=== PATIENT | female | born 1980 ===

== ENCOUNTER 2021-01-13 13:59 | Outpatient (CLI) | payer OTHER, SELFPAY ==
--- NOTE | ~2021-01-13 | XR_ITS ---
EXAMINATION: XR barium swallow DATE: 01/13/2021 14:40 INDICATION: Dysphagia and odynophagia TECHNIQUE: The patient drank thick barium, gas-producing crystals, and thin barium. Fluoroscopy of th e hypopharynx and esophagus was performed. Fluoroscopy exposure time was 1.1 minutes. The DAP for thi s procedure was 6.165 Gycm2. COMPARISON: None. FINDINGS: There is no mass or stricture of the esophagus. Esophageal motility is normal. There is no hiatal hernia. There was no gastroesophageal reflux with provocative maneuvers. IMPRESSION: 1. Unremarkable esophagram. Reviewed, dictated and finalized at location A. ON STAMPER IMPRESSION: 1. Unremarkable esophagram.
== END 2021-01-13 14:00 | disposition home or self-care (01) ==
LOC: CHSIMG 14:03
PROVIDERS: PCP Nurse Practitioner Family; Visit Provider Nurse Practitioner Family
DX: R19.8 Other specified symptoms and signs involving the digestive system and abdomen (principal)
CPT/HCPCS: 74220

== ENCOUNTER 2023-08-15 08:36 | Outpatient (CLI) | payer OTHER, SELFPAY ==
--- NOTE | ~2023-08-15 | MM_ITS ---
EXAMINATION: MM screening lynda BI w rupert HISTORY: Screening TECHNIQUE: Craniocaudal and mediolateral oblique 3-D tomosynthesis images were obtained and synthetic 2-D images were generated. CAD analysis was submitted and interpreted. COMPARISON: No prior mammogram is available for comparison at this institution. BREAST PARENCHYMAL COMPOSITION: Not dense: There are scattered areas of fibroglandular density. FINDINGS: There is no evidence of suspicious mass, calcification, or architectural distortion to sugg est malignancy in either breast. There has been no suspicious interval change. IMPRESSION: 1. No mammographic evidence of malignancy. 2. Recommend routine screening mammography in one year. BI-RADS Category 1: Negative Reviewed, dictated and finalized at location B.
== END 2023-08-15 08:37 | disposition home or self-care (01) ==
LOC: CHSIMG 08:40
DX: Z12.31 Encounter for screening mammogram for malignant neoplasm of breast (principal)
CPT/HCPCS: 77063; 77067

== ENCOUNTER 2023-09-26 09:53 | Outpatient (CLI) | payer OTHER, SELFPAY ==
[2023-09-26 11:06] LABS: Ammonia 14 umol/L (11-32); Aspartate Amino Transferase 35 U/L (15-37); Cholesterol 170 mg/dL (0-200); Creatine Kinase 67 U/L (26-192); HDL Direct 54 mg/dL (40-60); LDL Cholesterol Calculated 93 mg/dL (<130); Magnesium 1.7 mg/dL (1.8-2.4); Triglycerides 114 mg/dL (0-150); Vitamin B12 432 pg/mL (193-986)
[2023-09-26 11:35] LABS: Thyroid Stimulating Hormone Reflex 2.11 u/IU/mL (0.36-3.74)
[2023-09-29 09:53] LABS: Vitamin B6 6.3 ng/mL (2.1-21.7)
== END 2023-09-26 09:54 | disposition home or self-care (01) ==
LOC: CHSLAB 09:57
PROVIDERS: Visit Provider Psychiatry & Neurology Neurology
DX: E78.5 Hyperlipidemia, unspecified (principal); R25.1 Tremor, unspecified
CPT/HCPCS: 36415; 80061; 82140; 82550; 82607; 83735; 84207; 84443; 84450

== ENCOUNTER 2024-03-19 11:55 | Outpatient (CLI) | payer OTHER, SELFPAY ==
[2024-03-19 12:33] LABS: Aspartate Amino Transferase 23 U/L (15-37); Cholesterol 164 mg/dL (0-200); HDL Direct 63 mg/dL (40-60); LDL Cholesterol Calculated 80 mg/dL (<130); Triglycerides 103 mg/dL (0-150)
[2024-03-20 18:48] LABS: Vitamin D 25 Hydroxy 36 ng/mL (30-100)
--- OUTSIDE RECORDS SUMMARY | 2024-03-21 18:08 | XMS_ITS | Data Portability ---
Author Organization [facility], [address] [facility] ([place]) Address [address] [place] [id number] Assessment Encounter Date Assessment Date Assessment LastModified by Organization Details LastModified Time 09/04/2023 09/04/2023 ASSESSMENT AND PLAN: Shanna Jacob is a 43-year-old female who presents today to establish care for complaints of decline in memory and thinking, tremors and muscle pain. At this point, we can evaluate for metabolic cause. I recommended obtaining a TSH with reflex T4, vitamin B12, vitamin B6, sodium, magnesium, CPK. At this point, I have no record of prior imaging. In future if metabolic workup is unremarkable, we can consider proceeding with MRI brain. Regarding additional workup, if symptoms are persistent, we will consider bilateral upper extremity nerve conduction EMG. I would like to see her back in 6 to 8 weeks. I will also schedule for neuropsychiatric testing due to cognitive complaints. I personally spent a total of 30 minutes on the patient on this date of service including both zyjl-gu-dxiw and izg-vqjs-fw-face time excluding any separately reportable services. clotilde stout Not available 09/07/2023 11:43:25 Plan of Treatment Reminders Order Date Submit Date Provider Last Modified By Organization Details Last Modified Time Details Appointments None recorded. Lab TSH, serum or plasma 2023 024 [email or web address] [facility], [address] [place] [address], [id number], 13:10:38 vitamin B12, serum 2023 024 [email or web address] [facility] - [facility], [address] [place] [address], [id number], 4 13:10:38 vitamin B6 + metabolites panel, serum or plasma 2023 [email or web address] [facility], [address] [place] [address], [id number], 4 13:10:38 ammonia, blood 2023 [email or web address] [facility], [address] [place] [address], [id number], 4 13:10:38 unlisted lab - magnesium ([place] only) 2023 [email or web address] [facility], [address] [place] [address], [id number], 4 13:10:38 CK (creatine kinase), total, serum 2023 LAURA [facility], [address] [place] [address], [id number], 4 17:47:41 Referral None recorded. Procedures None recorded. Surgeries None recorded. Imaging None recorded. Medication Orders None recorded. Patient TargetsNo targets recorded. Patient InstructionsNo instructions recorded. Reason for Referral None Reported. Results Created Date Observation Date Name Description Value Unit Range Abnormal Flag Note LastModifiedBy Organization Detail LastModifiedTime Result Notes None recorded. Problems Name Problem SNOMED Code Status Onset Date Resolution Date Notes Provider Name and Address Organization Details Recorded Time Tremor 76883630 Active Mae Osorio MD [address] [place], [address], [facility] 4 13:40:01 Muscle weakness 40901883 Active Mae Osorio MD [address] [place], [address], [facility] 4 13:41:04 Muscle pain 86356301 Active Mae Osorio MD [address] [place] [address], [phone], [facility] 4 13:41:10 Minimal cognitive impairment 648910467 Active 024 Mae Osorio MD [address] [place] [address], [phone], [facility] 4 16:47:37 Problem Notes None recorded. Procedures Surgical History Date Name Laterality Status Provider Name and Address Organization Details Recorded Time delivery completed Not Available Health Note 2023 13:31:39 Removal of gallbladder completed Not Available Health Note 2023 13:31:39 Imaging Results None recorded. Procedure Notes None recorded. Medical Equipment None Reported. Allergies Allergen ID Allergen Name Allergen Category Reaction Reaction Severity Criticality Documentation Date Start Date Code Code System Note Provider Name and Address Organization Details Recorded Time [id number] Product containin g penicilli n and antibioti c (product) medicatio n rash Not available Not available 2023 50948 05 SNOMED Not Available Not Available Not Available [id number] pineapple extract food anaphylax is severe high 09/04/2023 23250 74 RxNorm Not Available Not Available Not Available Medications Name Sig Start Date Stop Date Status Note LastModified by Organization Details LastModified Time atorvastatin 20 mg tablet TAKE 1 TABLET BY MOUTH EVERYDAY AT BEDTIME active Not Available Not Available No t Available ergocalciferol (vitamin D2) 1,250 mcg (50,000 unit) capsule TAKE 1 CAPSULE BY MOUTH WEEKLY FOR 8 WEEKS active Not Available Not Available No t Available norethindrone (contraceptive ) 0.35 mg tablet active Not Available Not Available Not Available betamethasone dipropionate 0.05 % lotion APPLY TO AFFECTED AREA TWICE A DAY active Not Available Not Available No t Available Sadaf 30 mg tablet active Not Available Not Available Not Available Ramona 0.25 mg-35 mcg tablet TAKE 1 TABLET BY MOUTH EVERY DAY active Not Available Not Available No t Available Vitals Date Recorded Body height Provider Name an d Address Organization Details Last Updated DateTime 09/04/2023 152.4 cm [facility] 09/04/2023 13:09:13 Date Recorded Body mass index (BMI) Body weight Provider Name and Address Organization Details Last Updated DateTime 09/04/2023 31.3 kg/m2 49537.5 g Rena [facility] 09/04/2023 13:09:18 Date Recorded Heart rate Provider Name an d Address Organization Details Last Updated DateTime 09/04/2023 83 /min Rena [facility] 09/04/2023 13:09:31 Date Recorded Respiratory rate Provider Name a nd Address Organization Details Last Updated DateTime 09/04/2023 20 /min Rena [facility] 09/04/2023 13:09:33 Date Recorded Oxygen saturation Oxygen saturation in Arterial blood by Pulse oximetry Provider Name and Address Organization Details Last Updated DateTime 09/04/2023 98 % 98 % Rena [facility] 09/04/2023 13:09:37 Date Recorded Systolic blood pressure Diastolic blood pressure Provider Name and Address Organization Details Last Updated DateTime 09/04/2023 112 mm[Hg] 60 mm[Hg] Rena [facility] 09/04/2023 13:09:27 Social History Question Answer Notes LastModified by Organizat ion Details LastModified Time Do You Have An Advance Directive? No [email or web address] Information not available 2023 What Is Your Level Of Alcohol Consumption? None [email or web address] Information not available 2023 What Is Your Level Of Caffeine Consumption? Heavy [email or web address] Information not available 2023 Are You Currently Employed? No [email or web address] Information not available 2023 What Is Your Occupation? None [email or web address] Information not available 2023 How Many Times Per Week Do You Exercise? 1-2 Times Per Week [email or web address] Information not available 2023 When Did You Quit Smoking? 2019 [email or web address] Information not available 2023 Do You Have A Medical Power Of Staffing Consultant? No [email or web address] Information not available 2023 What Was The Date Of Your Most Recent Tobacco Screening? 09/04/2023 [email or web address] Information not available 2023 What Is Your Relationship Status? [email or web address] Information not available 2023 Do You Use Any Illicit Or Recreational Drugs? No [email or web address] Information not available 2023 Sex: Unknown Functional Status Question Answer Note LastModified by Organizat ion Details LastModified Time What is your exercise level? Occasional [email or web address] Information not available 2023 Mental Status None recorded. Family History Relationship Description Onset Age of this Age Resolved Age Notes LastModified by Organization Details LastModified Time Mother Attention deficit hyperactivit y disorder [email or web address] Not available 08/27 13:31:38 Mother Family history of malignant neoplasm [email or web address] Not available 2023 13:31:38 Sister Attention deficit hyperactivit y disorder [email or web address] Not available 08/27 13:31:38 Sister Disorder of thyroid gland [email or web address] Not available 2023 13:31:38 Father Diabetes mellitus [email or web address] Not available 2023 13:31:38 Father Hypertensive disorder [email or web address] Not available 2023 13:31:38 Father Hypercholest erolemia [email or web address] Not available 2023 13:31:38 Medical History Condition Response Diabetes N Anxiety Disorder Y Bleeding Disorder N Attention-deficit Hyperactivity Disorder N High Blood Pressure N Arthritis N Hyperlipidemia N Cancer N Stroke N Thyroid Problems N Asthma N Depression N COPD N Anemia N Seizures N Heart Disease N Fibromyalgia N Osteoporosis N Kidney Disease N Gynecological HistoryNo gynecological history recorded. Obstetrics History GPAL:G 0 P 0 0 0 0 Past Encounters Encounter ID Performer Location Encounter Start Date Encounter Closed Date Diagnosis/Indication Diagnosis SNOMED-CT Code Diagnosis ICD10 Code Diagnosis Note [id number] Mae Osorio MD [facility] ([place]) [address] [place] [address] 09/04/2023 12:49:54 09/04/2023 16:25:59 Tremor 80847672 R25.1 Muscle weakness 28089090 M62.81 Muscle pain 48526733 M79 .10 Minimal co gnitive impairment 418472936 R41.89 Health Concerns Section Related Observation LastModified by Organization Detai ls LastModified Time None Recorded Concern Status LastModified by Organization Details LastModified Time None Recorded Advance Directives Directive N: Payers Encounter Date Sequence Insurance Name Policy Number Policy Krishnan Covered Member ID Krishnan Member ID Guarantor Name 09/04/2023 1 [employer] - [employer] ([employer]) Shanna Jacob [id number] Shanna Jacob Notes Date Note Type Note Provider Name and Address Organization Details Recorded Time 09/04/2023 text/html Shanna Jacob is a 43-year-old female who presents with concerns for what she describes as ? muscle stuff? ongoing over 10 years. She reports a history of ? shakes.? She had to quit her job because of this. 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 By the end of the night, she would notice hand shaking and cramping. She reported pain in the arm correlated within the thoracic area but then would radiate into the arm. Regarding the tremor, she states this was prominently the hands that she noticed cramping in but she also had numbness and tingling in her hands and feet. This was also worse in the hands and could be triggered by driving. More prominently the first three fingers were affected. She states she is left-hand dominant. Symptoms would also worsen after using the hands, but she reports worsening with activities like cutting food. Eating and drinking could be affected, including use of plastic silverware. She had no known difficulty starting or stopping movements. She self-reports talking in her sleep but has no corroboration of this. No constipation or loss of sense of smell. No loss of voice. No problems walking at this point. In correlation with this, she reports concerns also for memory decline. She cannot recall short-term. She has difficulty in the context of things like scheduling and concern for inability to put together flavors for coffee in terms of what she previously did at a coffee shop. She is able to maintain things like doctor? s appointments but writes these things down. She is able to do all basic activities of daily living. When she goes grocery shopping, she has to call her to figure out why she went to the grocery store to begin with and what she was there to get. In terms of housekeeping, she is able to maintain the house reasonably clean but does get distracted easily. She is able to manage her finances but has to use reminders of when bills are to be paid. She does not have any trouble making food. No difficulty driving or using the telephone. She is currently on Lipitor, vitamin D and control. She was adopted and has no known family history. She reports her mother? s side of the family had a mental illness history. Her biological father had hyperlipidemia and memory problems that were unclear in terms of source. She has a personal history of depression and anxiety. It is not as well controlled. She reports more stress recently. No current medications for mood but was historically on Zoloft. She questions possible ADHD due inattentiveness but does not have a diagnosis of this as a child. Historically, she worked managing a coffee shop. 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 She has an associate? s degree. Mae Osorio MD [address] [place] [address], [phone], [facility] 09/08/2023 13:40:39 OBGyn Episode No OBEpisode recorded.
== END 2024-03-19 11:56 | disposition home or self-care (01) ==
LOC: CHSLAB 11:58
PROVIDERS: Visit Provider Nurse Practitioner Family
DX: E55.9 Vitamin D deficiency, unspecified (principal); E78.5 Hyperlipidemia, unspecified
CPT/HCPCS: 36415; 80061; 82306; 84450